=== PATIENT | male | born 1930 | race Caucasian/White ===

== ENCOUNTER 2016-04-23 09:58 | Emergency (ER) | payer MEDICARE, OTHER ==
--- NOTE | 2016-04-23 11:17 | RAD ---
HISTORY: Left-sided chest pain, trauma COMPARISONS: August 09, 2015 VIEWS: 2: Frontal dual-energy and lateral views of the chest. FINDINGS: CARDIOMEDIASTINAL SILHOUETTE: The cardiomediastinal silhouette is normal. LIZ: The liz are normal. PLEURA: The costophrenic angles are sharp. No pleural abnormalities are noted. LUNG PARENCHYMA: There is hyperinflation with flattening of the diaphragm and expansion of the AP diameter of the chest. ABDOMEN: The upper abdomen is clear. There is no subphrenic gas. BONES AND SOFT TISSUES: Degenerative changes are noted along the spine. There is diffuse osteopenia. OTHER: None. IMPRESSION: HYPERINFLATION, CONSISTENT WITH COPD. NO ACTIVE CARDIOPULMONARY DISEASE.
[2016-04-23 11:59] VITALS: BP 120/57
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
== END 2016-04-23 14:18 | disposition home or self-care (01) ==
LOC: ED 09:58
DX: R07.89 Other chest pain (principal)
CPT/HCPCS: 71020; 93005; 99282

== ENCOUNTER 2016-05-17 09:27 | Emergency (ER) | payer MEDICARE, OTHER ==
--- NOTE | 2016-05-17 11:46 | RAD ---
HISTORY: Ataxia COMPARISONS: February 13, 2012 TECHNIQUE: Multiple contiguous axial CT scans were obtained of the head without intravenous contrast. FINDINGS: HEMORRHAGE/INFARCT: There is no hemorrhage or acute infarct. MASSES/SHIFT: There is no mass or shift. EXTRA-AXIAL SPACES: There are no extra-axial fluid collections. SULCI AND VENTRICLES: There is diffuse and proportional enlargement of the sulci and ventricles. CEREBRUM: There are no focal parenchymal abnormalities. BRAINSTEM: There are no focal parenchymal abnormalities. CEREBELLUM: There are no focal parenchymal abnormalities. VESSELS: The vessels are grossly normal. PARANASAL SINUSES: The paranasal sinuses are clear. There is polypoid mucosal thickening of the nasal cavity and the right ORBITS: The orbits are unremarkable. BONES AND SOFT TISSUE: No bone or soft tissue abnormalities are noted. OTHER: None IMPRESSION: 1. NO ACUTE INTRACRANIAL PATHOLOGY. 2. DIFFUSE INVOLUTIONAL CHANGE. 3. POLYP WITH MUCOSAL THICKENING OF THE NASAL CAVITY ON THE RIGHT. RECOMMEND CORRELATION WITH DIRECT VISUALIZATION.
[2016-05-17 11:59] LABS: Hematocrit 39 % (42-52); Mean Corpuscular HGB Conc 33 g/dl (31-36); Mean Corpuscular Hemoglobin 29 pg (27-31); Mean Corpuscular Volume 89 fL (80-94); Mean Platelet Volume 8 um3 (7.4-10.4); Red Blood Count 4.42 10^6/ul (4.0-5.4); Red Cell Distribution Width 15 % (10.5-15); White Blood Count 7.3 10^3/ul (3.5-10.8)
[2016-05-17 12:16] LABS: Albumin 3.8 g/dL (3.2-5.2); BUN/Creatinine Ratio 18.8 (8-20); Calcium 9.1 mg/dL (8.6-10.3); EGFR African American 55.4 (>60); Globulin 2.7 g/dL (2-4); Magnesium 2.3 mg/dL (1.9-2.7); Potassium 4.3 mmol/L (3.5-5.0); Total Bilirubin 0.5 mg/dL (0.2-1.0); Total Protein 6.5 g/dL (6.4-8.9)
[2016-05-17 12:18] LABS: Troponin I 0.02 ng/mL (<0.04)
[2016-05-17] MEDS ORDERED: NS 0.9% 1000 ML* 500 ML IV ONE (12:23)
[2016-05-17 12:43] LABS: TSH (Thyroid Stimulating Horm) 0.25 mcIU/mL (0.34-5.60)
[2016-05-17 13:01] VITALS: BP 116/73
[2016-05-17 13:05] LABS: Urine Bacteria 1+ (Absent); Urine Bilirubin Negative (Negative); Urine Glucose Negative (Negative); Urine Nitrite Negative (Negative)
[2016-05-17] MEDS ORDERED: Ciprofloxacin 400MG IVPREMIX(* 400 MG/200 ML BAG IVPB ONE (13:51)
[2016-05-17] MEDS ORDERED: CIPROFLOXACIN 400 MG IVPB ONE (14:24)
--- NOTE | 2016-05-18 22:10 | ED ---
Min Casper Adam, scribed for William Leiva MD on 05/17/16 at 1015 . Adult Trauma - HPI Summary HPI Summary: Pt is an 86 year old male presenting with increasing weakness and multiple falls over the past few months. Pt states that his legs are weak and he has difficulty standing up straight because his knees buckle. He presents with pain in his right hand and left elbow due to injuries from his most recent fall. He uses a walker to get around at home. Pt also states that he has also had shingles on the back of his head for approximately 2 weeks and he is using a cream that was prescribed to him. - History of Current Complaint Chief Complaint: EDWeakness Stated Complaint: WEAKNESS/POSSIBLE SHINGLES Time Seen by Provider: 05/17/16 09:44 Hx Obtained From: Patient Mechanism of Injury: Fall Ambulatory at the Scene: Yes Loss of Consciousness: no loss of consciousness Onset/Duration: Started Days Ago, Traumatic, Still Present Onset of Pain: Immediate Onset Severity: Mild Current Severity: None Pain Intensity: 0 Pain Scale Used: 0-10 Numeric Location: Extremities - Minor injuries to right hand and left elbow Aggravating Factor(s): Nothing Alleviating Factor(s): Nothing Associated Signs & Symptoms: Positive: Other: - Lower extremity weakness - Allergy/Home Medications Allergies/Adverse Reactions: Allergies Allergy/AdvReac Type Severity Reaction Status Date / Time No Known Allergies Allergy Verified 05/17/16 10:03 Home Medications: Home Medications Gabapentin CAP(*) [Neurontin 300 CAP(*)] 300 mg PO BEDTIME 05/17/16 [History Confirmed 05/17/16] Mupirocin 2% OINT* [Bactroban 2 % Oint*] 1 applic TOPICAL BID PRN 05/17/16 [ History Confirmed 05/17/16] ValACYclovir (*) [Valtrex 1 GM(*)] 1 gm PO TID 05/17/16 [History Confirmed 05/17] carBAMazepine ER TAB(*) [TEGretol Xr TAB(*)] 200 mg PO BID 05/17/16 [History Confirmed 05/17/16] PMH/Surg Hx/FS Hx/Imm Hx Endocrine/Hematology History: Denies: Hx Diabetes, Hx Sickle Cell Disease, Hx Thyroid Disease Cardiovascular History: Reports: Hx Hypertension Denies: Hx Pacemaker/ICD Respiratory History: Denies: Hx Asthma, Hx Chronic Obstructive Pulmonary Disease (COPD) GI History: Denies: Hx Ulcer, Other GI Disorders History: Reports: Other Problems/Disorders - Bladder CA Musculoskeletal History: Reports: Hx Orthopedic Injury - elbow left 25 yr ago Denies: Other Musculoskeletal History Sensory History: Reports: Hx Cataracts - BILATERAL EYES, Hx Contacts or Glasses , Hx Vision Problem, Hx Hearing Problem Denies: Hx Hearing Aid Opthamlomology History: Reports: Hx Cataracts - BILATERAL EYES, Hx Contacts or Glasses, Hx Vision Problem Neurological History: 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 LEFT ELBOW SURGERY - 15 YEARS AGO [place] Hx Anesthesia Reactions: No Infectious Disease History: No Infectious Disease History: Denies: Hx Hepatitis, Hx Human Immunodeficiency Virus (HIV), History Other Infectious Disease, Traveled Outside the [place] in Last 30 Days - Family History Known Family History: Positive: Cardiac Disease - Social History Occupation: Retired Lives: Alone Alcohol Use: None Hx Substance Use: No Substance Use Type: Reports: None Hx Tobacco Use: No Smoking Status (MU): Never Smoked Tobacco Review of Systems Negative: Fever Positive: Other - Minor injuries to right hand and left elbow Positive: Other - Shingles on the back of the head Positive: Weakness - Lower extremities All Other Systems Reviewed And Are Negative: Yes Physical Exam Triage Information Reviewed: Yes Vital Signs On Initial Exam: Initial Vitals Temp Pulse Resp BP Pulse Ox 97.7 F 93 18 130/65 100 05/17/16 09:33 05/17/16 09:33 05/17/16 09:33 05/17/16 09:33 05/17/16 09:33 Vital Signs Reviewed: Yes Appearance: Positive: Well-Appearing, No Pain Distress Skin: Positive: Warm, Skin Color Reflects Adequate Perfusion, Dry Head/Face: Positive: Normal Head/Face Inspection Eyes: Positive: Normal ENT: Positive: Normal ENT inspection Neck: Positive: Supple, Nontender Respiratory/Lung Sounds: Positive: Clear to Auscultation, Breath Sounds Present Cardiovascular: Positive: RRR Abdomen Description: Positive: Nontender, Soft Bowel Sounds: Positive: Present Musculoskeletal: Positive: Normal Neurological: Positive: Normal Psychiatric: Positive: Affect/Mood Appropriate - Jenise Coma Scale Coma Scale Total: 15 Diagnostics - Vital Signs Vital Signs Temp Pulse Resp BP Pulse Ox 05/17/16 10:00 88 12 132/70 98 05/17/16 09:52 91 15 99 05/17/16 09:49 135/77 05/17/16 09:47 98.3 F 90 16 135/77 98 05/17/16 09:33 97.7 F 93 18 130/65 100 - Laboratory Lab Results: Lab Results 05/17/16 05/17/16 05/17/16 Range/Units 11:45 11:45 11:45 WBC 7.3 (3.5-10.8) 10^3/ul RBC 4.42 (4.0-5.4) 10^6/ul Hgb 13.0 L (14.0-18.0) g/dl Hct 39 L (42-52) % MCV 89 (80-94) fL MCH 29 (27-31) pg MCHC 33 (31-36) g/dl RDW 15 (10.5-15) % Plt Count 209 (150-450) 10^3/ul MPV 8 (7.4-10.4) um3 Neut % (Auto) 76.7 (38-83) % Lymph % (Auto) 10.4 L (25-47) % [place] % (Auto) 11.4 H (1-9) % Eos % (Auto) 1.3 (0-6) % Baso % (Auto) 0.2 (0-2) % Absolute Neuts (auto) 5.6 (1.5-7.7) 10^3/ul Absolute Lymphs (auto) 0.8 L (1.0-4.8) 10^3/ul Absolute Monos (auto) 0.8 (0-0.8) 10^3/ul Absolute Eos (auto) 0.1 (0-0.6) 10^3/ul Absolute Basos (auto) 0 (0-0.2) 10^3/ul Absolute Nucleated RBC 0 10^3/ul Nucleated RBC % 0 Sodium 137 (133-145) mmol/L Potassium 4.3 (3.5-5.0) mmol/L Chloride 105 (101-111) mmol/L Carbon Dioxide 26 (22-32) mmol/L Anion Gap 6 (2-11) mmol/L BUN 29 H (6-24) mg/dL Creatinine 1.54 H (0.67-1.17) mg/dL Est GFR ( Amer) 55.4 (>60) Est GFR (Non-Af Amer) 43.0 (>60) BUN/Creatinine Ratio 18.8 (8-20) Glucose 105 H (70-100) mg/dL Lactic Acid 1.3 (0.5-2.0) mmol/L Calcium 9.1 (8.6-10.3) mg/dL Magnesium 2.3 (1.9-2.7) mg/dL Total Bilirubin 0.50 (0.2-1.0) mg/dL AST 20 (13-39) U/L ALT 15 (7-52) U/L Alkaline Phosphatase 107 H (34-104) U/L Troponin I 0.02 (<0.04) ng/mL Total Protein 6.5 (6.4-8.9) g/dL Albumin 3.8 (3.2-5.2) g/dL Globulin 2.7 (2-4) g/dL Albumin/Globulin Ratio 1.4 (1-3) TSH 0.25 L (0.34-5.60) mcIU/mL Urine Color Urine Appearance Urine pH (5-9) Ur Specific [place] (1.010-1.030) Urine Protein (Negative) Urine Ketones (Negative) Urine Blood (Negative) Urine Nitrate (Negative) Urine Bilirubin (Negative) Urine Urobilinogen (Negative) Ur Leukocyte Esterase (Negative) Urine WBC (Auto) (Absent) Urine RBC (Auto) (Absent) Urine Bacteria (Absent) Urine Glucose (Negative) 05/17/16 Range/Units 12:28 WBC (3.5-10.8) 10^3/ul RBC (4.0-5.4) 10^6/ul Hgb (14.0-18.0) g/dl Hct (42-52) % MCV (80-94) fL MCH (27-31) pg MCHC (31-36) g/dl RDW (10.5-15) % Plt Count (150-450) 10^3/ul MPV (7.4-10.4) um3 Neut % (Auto) (38-83) % Lymph % (Auto) (25-47) % [place] % (Auto) (1-9) % Eos % (Auto) (0-6) % Baso % (Auto) (0-2) % Absolute Neuts (auto) (1.5-7.7) 10^3/ul Absolute Lymphs (auto) (1.0-4.8) 10^3/ul Absolute Monos (auto) (0-0.8) 10^3/ul Absolute Eos (auto) (0-0.6) 10^3/ul Absolute Basos (auto) (0-0.2) 10^3/ul Absolute Nucleated RBC 10^3/ul Nucleated RBC % Sodium (133-145) mmol/L Potassium (3.5-5.0) mmol/L Chloride (101-111) mmol/L Carbon Dioxide (22-32) mmol/L Anion Gap (2-11) mmol/L BUN (6-24) mg/dL Creatinine (0.67-1.17) mg/dL Est GFR ( Amer) (>60) Est GFR (Non-Af Amer) (>60) BUN/Creatinine Ratio (8-20) Glucose (70-100) mg/dL Lactic Acid (0.5-2.0) mmol/L Calcium (8.6-10.3) mg/dL Magnesium (1.9-2.7) mg/dL Total Bilirubin (0.2-1.0) mg/dL AST (13-39) U/L ALT (7-52) U/L Alkaline Phosphatase (34-104) U/L Troponin I (<0.04) ng/mL Total Protein (6.4-8.9) g/dL Albumin (3.2-5.2) g/dL Globulin (2-4) g/dL Albumin/Globulin Ratio (1-3) TSH (0.34-5.60) mcIU/mL Urine Color Yellow Urine Appearance Cloudy Urine pH 5.0 (5-9) Ur Specific [place] 1.017 (1.010-1.030) Urine Protein Negative (Negative) Urine Ketones Negative (Negative) Urine Blood 1+ H (Negative) Urine Nitrate Negative (Negative) Urine Bilirubin Negative (Negative) Urine Urobilinogen Negative (Negative) Ur Leukocyte Esterase 2+ H (Negative) Urine WBC (Auto) 3+(>20/hpf) H (Absent) Urine RBC (Auto) 1+(3-5/hpf) H (Absent) Urine Bacteria 1+ H (Absent) Urine Glucose Negative (Negative) Result Diagrams: 05/17/16 11:45 05/17/16 11:45 Lab Statement: Any lab studies that have been ordered have been reviewed, and results considered in the medical decision making process. - CT BRAIN CT Interpretation Completed By: Radiologist - IMPRESSION: 1. NO ACUTE INTRACRANIAL PATHOLOGY. 2. DIFFUSE INVOLUTIONAL CHANGE. 3. POLYP WITH MUCOSAL THICKENING OF THE NASAL CAVITY ON THE RIGHT. RECOMMEND CORRELATION WITH DIRECT VISUALIZATION. - EKG 09:43 Cardiac Rate: NL - 91 BPM EKG Rhythm: Sinus Rhythm - Additional Comments Diagnostic Additional Comments: Troponin I - 0.02 Adult Trauma Course/Dx - Course Assessment/Plan: Mr. Dove's W/U here was unremarkable except for a likely UTI. He was able to ambulate and most of his symptomatology is chronic therefore I will treat the UTI and D/C him to F/U. - Diagnoses Provider Diagnoses: UTI (urinary tract infection), Weakness Discharge - Discharge Plan Condition: Stable Disposition: HOME Prescriptions: Ciprofloxacin TAB* [Cipro Tab*] 500 mg PO BID #14 tab Patient Education Materials: Urinary Tract Infection in Men (ED), Weakness (ED) Referrals: Keith Huerta MD [Primary Care Provider] - Additional Instructions: Follow up with your Primary Care Provider this week. The documentation as recorded by the Min koehler Adam accurately reflects the service I personally performed and the decisions made by , William Leiva MD.
--- NOTE | 2016-05-19 07:26 | PN ---
Progress Note - Progress Note Note: Patient urine culture grew Enteroccus Faecalis 75-100,000. placed on cipro will wait for final culture.
== END 2016-05-17 15:00 | disposition home or self-care (01) ==
LOC: ED 09:27
DX: N39.0 Urinary tract infection, site not specified (principal); R53.1 Weakness; S59.902A Unspecified injury of left elbow, initial encounter; S69.91XA Unspecified injury of right wrist, hand and finger(s), initial encounter; B02.9 Zoster without complications; W19.XXXA Unspecified fall, initial encounter; Z91.81 History of falling; Y93.9 Activity, unspecified; Y92.9 Unspecified place or not applicable
CPT/HCPCS: 36415; 70450; 80053; 81003; 81015; 83605; 83735; 84443; 84484; 85025; 87077; 87086; 87186; 93005; 99282

== ENCOUNTER 2017-04-17 16:01 | Emergency (ER) | payer MEDICARE, OTHER ==
[2017-04-17] MEDS ORDERED: DOXYcycline CAP(*) 100 MG PO ONE (17:12)
--- NOTE | 2017-04-17 17:50 | ED ---
Throat Pain/Nasal Congestion - HPI Summary HPI Summary: Pt here w/ Rt ear swelling and scabbing x 2 weeks. Denies injury other than he may have scratched this area to initially trigger issue? Has been sore somewhat but no fever, chills, N/V/D, neck pain/stiffness, SOLIS, visual change, trouble breathing or swallowing. Possibly h/o cancer here (he's not sure but has a scar over the area just inferior and posterior to Rt pinna). Reports his discomfort improved after applying a topical cream he borrowed from a friend prior to arrival - not sure if this is an analgesic cream or antibiotic cream. No change in hearing or balance. - History of Current Complaint Chief Complaint: EDEarPain Time Seen by Provider: 04/17/17 17:11 Hx Obtained From: Patient - Allergies/Home Medications Allergies/Adverse Reactions: Allergies Allergy/AdvReac Type Severity Reaction Status Date / Time No Known Allergies Allergy Verified 05/17/16 10:03 PMH/Surg Hx/FS Hx/Imm Hx Previously Healthy: Yes Endocrine/Hematology History: Denies: Hx Diabetes, Hx Sickle Cell Disease, Hx Thyroid Disease Cardiovascular History: Reports: Hx Hypertension Denies: Hx Pacemaker/ICD Respiratory History: Denies: Hx Asthma, Hx Chronic Obstructive Pulmonary Disease (COPD) GI History: Denies: Hx Ulcer, Other GI Disorders History: Reports: Other Problems/Disorders - Bladder CA Musculoskeletal History: Reports: Hx Orthopedic Injury - elbow left 25 yr ago Denies: Other Musculoskeletal History Sensory History: Reports: Hx Cataracts - BILATERAL EYES, Hx Contacts or Glasses , Hx Vision Problem, Hx Hearing Problem Denies: Hx Hearing Aid Opthamlomology History: Reports: Hx Cataracts - BILATERAL EYES, Hx Contacts or Glasses, Hx Vision Problem Neurological History: 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 LEFT ELBOW SURGERY - 15 YEARS AGO [place] Hx Anesthesia Reactions: No Infectious Disease History: No Infectious Disease History: Denies: Hx Hepatitis, Hx Human Immunodeficiency Virus (HIV), History Other Infectious Disease, Traveled Outside the [place] in Last 30 Days - Family History Known Family History: Positive: Cardiac Disease - Social History Occupation: Retired Lives: Alone - [place] Alcohol Use: None Hx Substance Use: No Substance Use Type: Reports: None Hx Tobacco Use: No Smoking Status (MU): Never Smoked Tobacco Review of Systems Constitutional: Negative Eyes: Negative Positive: Other - external ear pain, Rt Cardiovascular: Negative Respiratory: Negative Gastrointestinal: Negative Positive: no symptoms reported Musculoskeletal: Negative Skin: Other - redness, swelling, scabbing Rt ear Neurological: Negative Psychological: Normal All Other Systems Reviewed And Are Negative: Yes Physical Exam Triage Information Reviewed: Yes Vital Signs On Initial Exam: Initial Vitals Temp Pulse Resp BP Pulse Ox 98.6 F 87 16 162/100 98 04/17/17 16:07 04/17/17 16:07 04/17/17 16:07 04/17/17 16:07 04/17/17 16:07 Vital Signs Reviewed: Yes Appearance: Positive: Well-Appearing, No Pain Distress, Well-Nourished Skin: Positive: Warm, Skin Color Reflects Adequate Perfusion, Dry - dried superficial scabs over Rt pinna - no bleeding - tissue here is edematous and w/ erythema however is not with carmen fever to touch - EAC is patent and w/o lesions or d/c; [address] just distal to pinna - mobile and TTP Head/Face: Positive: Normal Head/Face Inspection Eyes: Positive: Normal, EOMI ENT: Positive: Normal ENT inspection, Hearing grossly normal, Pharynx normal - mucosa moist Neck: Positive: Supple, Enlarged Nodes @ - as above Respiratory/Lung Sounds: Positive: Breath Sounds Present. Negative: Stridor Cardiovascular: Positive: Normal Musculoskeletal: Positive: Strength/ROM Intact Neurological: Positive: Normal, Sensory/Motor Intact, Alert, Oriented to Person Place, Time, CN Intact II-III Psychiatric: Positive: Normal Diagnostics - Vital Signs Vital Signs Temp Pulse Resp BP Pulse Ox 04/17/17 16:07 98.6 F 87 16 162/100 98 - Laboratory Lab Statement: Any lab studies that have been ordered have been reviewed, and results considered in the medical decision making process. EENT Course/Dx - Course Course Of Treatment: Discussed w/ Dr. Leiva. Suspect possible malignant pathology of tissue however given inflammed state, will rx doxycycline and have pt f/u w/ PCP this week. Danger s/sx provided for when to return to ED. Pt agrees w/ plan. - Diagnoses Provider Diagnoses: Cellulitis of right ear Discharge - Discharge Plan Condition: Stable Disposition: HOME Prescriptions: DOXYcycline CAP(*) [DOXYcycline 100MG CAP(*)] 100 mg PO BID #19 cap Patient Education Materials: Cellulitis (ED) Referrals: Keith Huerta MD [Primary Care Provider] - Additional Instructions: Your right ear appears to be inflammed. This may be from an infection so an antibiotic was sent to your pharmacy. You may additionally wash the ear with soap and water, pat dry with clean cloth and use topical antibiotic ointment daily. Please complete the course and follow-up with your PCP later this week for re-evaluation. There is also concern that this tissue may be inflammed from other causes, including but not limited to a malignant process. It is important that you call your PCP tomorrow to schedule a follow-up appointment for this week. *If in the meantime you develop a headache, dizziness, weakness, neck stiffness , trouble breathing or swallowing or a fever, return to the ED.
[2017-04-17 18:07] VITALS: BP 160/79
== END 2017-04-17 18:06 | disposition home or self-care (01) ==
LOC: ED 16:01
DX: H60.11 Cellulitis of right external ear (principal)
CPT/HCPCS: 99282; A9270-GY

== ENCOUNTER 2017-11-29 12:38 | Emergency (ER) | payer MEDICARE, OTHER ==
[2017-11-29] MEDS ORDERED: NS 0.9% 500 ML* 500 ML IV ONE (12:45)
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
[2017-11-29 13:26] LABS: ABS Basophils 0 10^3/ul (0-0.2); ABS Eosinophils 0.1 10^3/ul (0-0.6); ABS Lymphocytes 0.8 10^3/ul (1.0-4.8); ABS Monocytes 1.3 10^3/ul (0-0.8); ABS Neutrophils 6.5 10^3/ul (1.5-7.7); ABS Nucleated RBC 0 10^3/ul; Eosinophil % 1.3 % (0-6); Hematocrit 43 % (42-52); Hemoglobin 14.7 g/dl (14.0-18.0); Lymphocyte % 9.7 % (25-47); Mean Corpuscular HGB Conc 34 g/dl (31-36); Mean Corpuscular Hemoglobin 30 pg (27-31); Mean Corpuscular Volume 88 fL (80-94); Mean Platelet Volume 8.4 um3 (7.4-10.4); Nucleated Red Blood Cells % 0.1; Platelet Count 300 10^3/ul (150-450); Red Cell Distribution Width 15 % (10.5-15); White Blood Count 8.7 10^3/ul (3.5-10.8)
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
[2017-11-29 13:43] LABS: ALT 14 U/L (7-52); AST 20 U/L (13-39); Albumin 4.1 g/dL (3.2-5.2); Albumin/Globulin Ratio 1.4 (1-3); Alkaline Phosphatase 103 U/L (34-104); Anion Gap 7 mmol/L (2-11); Blood Urea Nitrogen 20 mg/dL (6-24); CO2 Carbon Dioxide 28 mmol/L (22-32); Calcium 9.6 mg/dL (8.6-10.3); Chloride 106 mmol/L (101-111); Creatine Kinase 111 U/L (10-223); EGFR Non-African American 54.6 (>60); Glucose 92 mg/dL (70-100); Magnesium 2.2 mg/dL (1.9-2.7); Potassium 4.1 mmol/L (3.5-5.0); Sodium 141 mmol/L (135-145); Total Protein 7.1 g/dL (6.4-8.9)
[2017-11-29 14:05] LABS: Acetaminophen < 15 mcg/mL; Alcohol < 10 mg/dL (<10)
[2017-11-29 14:14] LABS: TSH (Thyroid Stimulating Horm) 0.21 mcIU/mL (0.34-5.60)
[2017-11-29 17:02] VITALS: BP 167/81
== END 2017-11-29 17:02 | disposition home or self-care (01) ==
LOC: ED 12:38
DX: Z04.1 Encounter for examination and observation following transport accident (principal); G40.909 Epilepsy, unspecified, not intractable, without status epilepticus; I10 Essential (primary) hypertension; Z85.51 Personal history of malignant neoplasm of bladder; V43.52XA Car driver injured in collision with other type car in traffic accident, initial encounter; Y92.481 Parking lot as the place of occurrence of the external cause
CPT/HCPCS: 36415; 70450; 71045; 80053; 80320; 80329; 82140; 82550; 83735; 84443; 84484; 85025; 93005; 96360; 99284; G0480